=== PATIENT | female | born 1990 | race Caucasian/White ===

== ENCOUNTER 2017-06-06 11:04 | Inpatient (IN) | payer OTHER ==
[~2017-06-06] VITALS: Ht 165 cm; Wt 77.1 kg
[~2017-06-06 11:04] MED LIST: IBUP-2071 PO; PREN-134 PO
[2017-07-23] MEDS: DEXTROSE 5%-0.45% SODIUM CHL 1,000 ML IV SCH ×2 (04:50→20:49)
[2017-07-23] MEDS ORDERED: RINGERS SOLUTION,LACTATED 1,000 ML IV ONE (10:51)
[2017-07-23] MEDS ORDERED: CITRIC ACID/SODIUM CITRATE 30 ML SOLUTION UDCUP PO ONE (11:00)
[2017-07-23] MEDS ORDERED: METOCLOPRAMIDE HCL 5 MG/ML 2 ML VIAL IVP ONE (11:00)
[2017-07-23 11:07] VITALS: BP 110/64
[2017-07-23 12:07] LABS: BASOPHILS % (AUTO) 0.5 % (0.0-2.0); EOSINOPHILS % (AUTO) 0.8 % (1.0-6.0); HEMOGLOBIN 11.5 g/dL (12.0-16.0); LYMPHOCYTES # (AUTO) 2.8 K/uL (1.0-4.8); LYMPHOCYTES % (AUTO) 36.4 % (22.0-44.0); MEAN CORPUSCULAR HGB CONC 34.9 G/dL (31.0-37.0); MEAN CORPUSCULAR VOLUME 92 fL (80-100); MONOCYTES # (AUTO) 0.6 K/uL (0.1-1.0); MONOCYTES % (AUTO) 7.6 % (2.0-9.0); NEUTROPHILS # (AUTO) 4.3 K/uL (1.8-7.7); NEUTROPHILS % (AUTO) 54.7 % (40.0-70.0); PLATELET COUNT (AUTO) 197 K/uL (150-450); RED BLOOD CELL COUNT(AUTO) 3.59 MIL/uL (4.00-5.20); RED CELL DISTRIBUTION WIDTH 12.5 % (11.5-14.5)
[2017-07-23] MEDS ORDERED: NALOXONE HCL 0.4 MG/ML VIAL IVP PRN (13:00)
[2017-07-23] MEDS ORDERED: MEPERIDINE-PF 25 MG/ML SYRINGE IVP PRN (13:00)
[2017-07-23] MEDS ORDERED: DiphenhydrAMINE HCL 50 MG/ML VIAL IVP PRN (13:00)
[2017-07-23] MEDS ORDERED: OxyCODONE HCL/ACETAMINOPHEN 5-325 MG TABLET PO PRN (13:00)
[2017-07-23] MEDS ORDERED: HYDROmorphone 2 MG/ML SYRINGE IVP PRN (13:00)
[2017-07-23] MEDS ORDERED: FentaNYL CITRATE-PF 100 MCG/2 ML VIAL IVP PRN (13:00)
[2017-07-23] MEDS ORDERED: ONDANSETRON HCL 4 MG/2 ML VIAL IVP PRN (13:00)
[2017-07-23] MEDS ORDERED: LANOLIN 7 GM OINTMENT TP PRN (13:30)
[2017-07-23] MEDS: FentaNYL CITRATE-PF 100 MCG/2 ML VIAL IVP PRN (17:03)
[2017-07-23] MEDS ORDERED: OXYGEN THERAPY IH SCH ×2 (20:00)
[2017-07-24] MEDS: DEXTROSE 5%-0.45% SODIUM CHL 1,000 ML IV SCH ×3 (00:47→09:00)
[2017-07-24] MEDS ORDERED: METOCLOPRAMIDE HCL 5 MG/ML 2 ML VIAL IVP ONE (04:17)
[2017-07-24] MEDS ORDERED: 0.9% SODIUM CHLORIDE 10 ML VIAL IVP ONE (04:17)
[2017-07-24] MEDS ORDERED: ONDANSETRON HCL 4 MG/2 ML VIAL IVP ONE (04:17)
[2017-07-24] MEDS ORDERED: KETOROLAC TROMETHAMINE 60 MG/2 ML VIAL IM ONE (04:17)
[2017-07-24] MEDS ORDERED: LIDOCAINE HCL/PF 2% 5 ML VIAL IM ONE (04:17)
[2017-07-24] MEDS ORDERED: OXYTOCIN 10 UNITS/ML VIAL IM ONE (04:17)
[2017-07-24] MEDS: FentaNYL CITRATE-PF 100 MCG/2 ML VIAL IVP PRN (05:24)
[2017-07-24] MEDS: IBUPROFEN 800 MG TABLET PO SCH ×3 (06:48→20:24)
[2017-07-24] MEDS: MAGNESIUM HYDROXIDE SUSPENSION 30 ML UDCUP PO SCH ×2 (08:07→20:24)
[2017-07-24] MEDS ORDERED: DEXTROSE 5%-0.45% SODIUM CHL 1,000 ML IV ONE (08:51)
[2017-07-24] MEDS: ACETAMINOPHEN/CODEINE 300-30 MG TABLET PO PRN ×2 (14:36→19:45)
[2017-07-25] MEDS: IBUPROFEN 800 MG TABLET PO SCH ×4 (02:03→20:11)
[2017-07-25] MEDS: MAGNESIUM HYDROXIDE SUSPENSION 30 ML UDCUP PO SCH ×2 (07:48→21:00)
[2017-07-25] MEDS: ACETAMINOPHEN/CODEINE 300-30 MG TABLET PO PRN ×3 (07:48→20:11)
[2017-07-26] MEDS: IBUPROFEN 800 MG TABLET PO SCH ×2 (02:04→08:03)
[2017-07-26] MEDS ORDERED: IBUP-2071 PO (08:42)
[2017-07-26] MEDS ORDERED: FERR-89 PO (08:42)
[2017-07-26] MEDS ORDERED: PERCT PO (08:42)
[2017-07-26] MEDS ORDERED: DSS100 PO (08:42)
[2017-07-26] MEDS: MAGNESIUM HYDROXIDE SUSPENSION 30 ML UDCUP PO SCH (09:00)
== END 2017-07-26 11:30 | disposition home or self-care (01) | DRG 766 ==
LOC: PREOBSVTOIN 11:04 → OBSVTOIN 07-23 10:50 → 4S 07-23 10:50
PROVIDERS: ADMIT Obstetrics & Gynecology; ATTEND Obstetrics & Gynecology
PROC: 10D00Z1 Extraction of Products of Conception, Low, Open Approach (ICD-10-PCS; principal; 2017-07-23)
PROC: 0UB70ZZ Excision of Bilateral Fallopian Tubes, Open Approach (ICD-10-PCS; 2017-07-23)
DX: O34.219 Maternal care for unspecified type scar from previous cesarean delivery (principal); Z30.2 Encounter for sterilization; Z37.0 Single live birth; Z3A.39 39 weeks gestation of pregnancy
CPT/HCPCS: 86850; 86900; 86901; 87081; 88302; J0690; J1885; J2405; J2590; J2765; J3010; J3490; J7120